=== PATIENT | male | born 1990 | race Caucasian/White ===

== ENCOUNTER 2017-02-16 05:15 | Day surgery (SDC) | payer OTHER ==
[~2017-02-16] VITALS: Ht 177.8 cm; Wt 72.6 kg
[2017-02-16 07:10] VITALS: BP 106/70; Ht 177.8 cm; Wt 72.6 kg
[2017-02-16] MEDS ORDERED: DURICEF500 MG PO (10:23)
[2017-02-16] MEDS ORDERED: PERCOCET 5-3251 TAB PO (10:24)
--- NOTE | 2017-02-16 11:50 | NUR ---
IV DC WITH CATHER TIP INTACT
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
== END 2017-02-16 11:56 | disposition home or self-care (01) ==
LOC: D.OPS 05:15
DX: S62.324A Displaced fracture of shaft of fourth metacarpal bone, right hand, initial encounter for closed fracture (principal); Y04.2XXA Assault by strike against or bumped into by another person, initial encounter; Y92.149 Unspecified place in prison as the place of occurrence of the external cause; Z01.812 Encounter for preprocedural laboratory examination